=== PATIENT | female | born 1970 | race Caucasian/White ===

== ENCOUNTER 2017-01-05 00:43 | Emergency (ER) | payer OTHER ==
[~2017-01-05] VITALS: Ht 170.2 cm; Wt 61.2 kg
[2017-01-05 00:50] VITALS: BP 113/76
[2017-01-05 01:51] LABS: BILIRUBIN,URINE NEGATIVE (NEGATIVE); BLOOD, URINE TRACE-INTA Ery/uL (NEGATIVE); COLOR,URINE YELLOW (YELLOW); KETONES,URINE NEGATIVE (NEGATIVE); LEUKOCYTE ESTERASE ,URINE 1+ (NEGATIVE); NITRITE, URINE NEGATIVE (NEGATIVE); PROTEIN,URINE NEGATIVE (NEGATIVE); UGLUCOSE NEGATIVE (NEGATIVE); UROBILINOGEN,URINE 0.2 EU/dL (0.2)
[2017-01-05 01:55] LABS: APPEARANCE,URINE HAZY (CLEAR)
[2017-01-05 01:59] LABS: RBC,URINE 0-5 /HPF (0-2); WBC,URINE 30-40 /HPF (0-3)
[2017-01-05 02:00] LABS: ADD URINE CULTURE YES; BACTERIA,URINE None seen /HPF (None Seen); SQUAMOUS EPITHELIAL CELL,UR Few /HPF (None Seen)
[2017-01-05 02:01] LABS: PREGNANCY TEST URINE QUAL NEGATIVE (NEGATIVE)
== END 2017-01-05 02:18 | disposition home or self-care (01) ==
LOC: ER 00:49
DX: N39.0 Urinary tract infection, site not specified (principal)
CPT/HCPCS: 81001; 84703; 87077; 87086; 87186; 99284; A4606; Z7610; 81000-TC

== ENCOUNTER 2017-06-21 04:28 | Emergency (ER) | payer OTHER ==
[~2017-06-21] VITALS: Ht 165.1 cm; Wt 56.7 kg
[2017-06-21 04:40] VITALS: BP 96/62
[2017-06-21] MEDS ORDERED: MORPHINE SULFATE INJ 10 MG/ML DISP.SYRIN ONE (04:46)
[2017-06-21] MEDS ORDERED: ONDANSETRON 4 MG TAB.RAPDIS ONE (04:47)
[2017-06-21] MEDS ORDERED: MORPHINE SULFATE INJ 2 MG/ML DISP.SYRIN IM ONE (05:00)
[2017-06-21] MEDS ORDERED: ONDANSETRON 4 MG TAB.RAPDIS SL ONE (05:00)
== END 2017-06-21 05:19 | disposition home or self-care (01) ==
LOC: ER 04:28
DX: R07.89 Other chest pain (principal); R91.8 Other nonspecific abnormal finding of lung field; Z88.5 Allergy status to narcotic agent; Z88.6 Allergy status to analgesic agent
CPT/HCPCS: A4606; J2270; Q0162; Z7610

== ENCOUNTER 2017-07-03 21:23 | Emergency (ER) | payer OTHER ==
[~2017-07-03] VITALS: Ht 165.1 cm; Wt 58.1 kg
--- NOTE | 2017-07-03 21:30 | NUR ---
PT A/OX4 PT C/O SOB AND DIFFICULTY BREATHING X 1 DAY, PT STATES SHE HAS A MASS ON THE RIGHT SIDE OF HER CHEST AND GOT A CT DONE 2 DAYS AGO TO SEE IF IT HAS SPREAD, PT PLACED ON MONITOR, IV PLACED AND LABS DRAWN, MD AT BEDSIDE WILL CONTINUE TO MONITOR.
[2017-07-03 21:47] LABS: BASOPHILS # (AUTO) 0.3 /CMM (0.0-0.2); BASOPHILS % (AUTO) 2.3 % (0.0-2.0); EOSINOPHILS # (AUTO) 0.5 /CMM (0.0-0.7); EOSINOPHILS % (AUTO) 3.6 % (0.0-6.0); HEMATOCRIT 37 % (33-45); HEMOGLOBIN 12.2 g/dL (11.5-14.8); LYMPHOCYTES # (AUTO) 2.8 /CMM (0.8-4.8); LYMPHOCYTES % (AUTO) 22.1 % (20.0-44.0); MEAN CORPUSCULAR HEMOGLOBIN 27 PG (26.0-33.0); MEAN CORPUSCULAR HGB CONC 33 g/dl (31.0-36.0); MEAN CORPUSCULAR VOLUME 83 fL (82-100); MONOCYTES # (AUTO) 0.7 /CMM (0.1-1.30); MONOCYTES % (AUTO) 5.6 % (2.0-12.0); NEUTROPHILS # (AUTO) 8.2 /CMM (1.8-8.9); NEUTROPHILS % (AUTO) 66.4 % (43.0-81.0); PLATELET COUNT (AUTO) 440 /CMM (150-450); RDW COEFFICIENT OF VARIATION 12.1 (11.5-15.0); WHITE BLOOD COUNT (AUTO) 12.5 K/uL (4.3-11.0)
[2017-07-03 22:00] LABS: CREATININE 0.7 mg/dL (0.6-1.3); POTASSIUM 3.7 mmol/L (3.5-5.1)
[2017-07-03 23:10] LABS: INR 0.99 (0.87-1.13); PROTHROMBIN TIME 10.6 SECS (9.5-12.7)
--- NOTE | 2017-07-04 00:04 | NUR ---
Patient discharged to home in stable condition. Written and verbal after care instructions given. Patient verbalizes understanding of instruction.IV removed. Catheter intact and site benign. Pressure and 4x4 applied to site. No bleeding noted.
[2017-07-04 00:06] VITALS: BP 119/67
== END 2017-07-04 00:08 | disposition home or self-care (01) ==
LOC: ER 21:25
DX: C34.90 Malignant neoplasm of unspecified part of unspecified bronchus or lung (principal); J43.9 Emphysema, unspecified; R07.89 Other chest pain; F17.200 Nicotine dependence, unspecified, uncomplicated; Z90.710 Acquired absence of both cervix and uterus
CPT/HCPCS: 36415; 71010-TC; 80048-TC; 84484-TC; 85025-TC; 85730-TC; A4606; J2270; J2405; J7030; J7050; Q9967; Z7610

== ENCOUNTER 2017-07-23 08:59 | Emergency (ER) | payer OTHER ==
[~2017-07-23] VITALS: Ht 165.1 cm; Wt 57.2 kg
--- NOTE | 2017-07-23 09:05 | NUR ---
BB FAMILY: RIGHT SIDED CHEST PAIN X 1 DAY RADIATING TO R UPPER BACK. GOWNED PT. PLACED ON MONITOR AWAITING MD ORDER
[2017-07-23 10:03] VITALS: BP 115/73
--- NOTE | 2017-07-23 10:03 | NUR ---
Patient discharged to home in stable condition. Written and verbal after care instructions given. Patient verbalizes understanding of instruction.
== END 2017-07-23 10:04 | disposition home or self-care (01) ==
LOC: ER 09:01
DX: R07.89 Other chest pain (principal); R91.8 Other nonspecific abnormal finding of lung field; Z90.710 Acquired absence of both cervix and uterus; F17.200 Nicotine dependence, unspecified, uncomplicated
CPT/HCPCS: 71020-TC; A4606; Q0162; Z7610